=== PATIENT | male | born 1985 | race Caucasian/White ===

== ENCOUNTER 2017-10-03 17:44 | Emergency (ER) | payer MEDICAID, OTHER ==
[2017-10-03] MEDS: HYDROCODONE/APAP (5/325) TAB PO (18:55)
[2017-10-03] MEDS: LIDOCAINE 1% (MDV) 10 ML INJ INJ (20:12)
== END 2017-10-03 20:29 | disposition home or self-care (01) ==
LOC: FTE 17:44
DX: S62.645A Nondisplaced fracture of proximal phalanx of left ring finger, initial encounter for closed fracture (principal); S61.215A Laceration without foreign body of left ring finger without damage to nail, initial encounter; S61.217A Laceration without foreign body of left little finger without damage to nail, initial encounter; W20.8XXA Other cause of strike by thrown, projected or falling object, initial encounter; Y92.007 Garden or yard of unspecified non-institutional (private) residence as the place of occurrence of the external cause
CPT/HCPCS: 29130; 73130-LT; 99284-25